=== PATIENT | female | born 1955 | race Caucasian/White ===

== ENCOUNTER 2025-03-13 13:12 | Inpatient (IN) | payer OTHER ==
[~2025-03-13] VITALS: Ht 152.4 cm; Wt 65.3 kg
[2025-03-13] MEDS ORDERED: KLOR-CON M2020 ME1 PO (13:55)
[2025-03-13] MEDS ORDERED: LASIX20 MG PO (13:56)
[2025-03-13] MEDS ORDERED: COL-RITE100 M1 PO (14:10)
[2025-03-13] MEDS ORDERED: 'CLONIDINE0.1 MG PO (14:13)
[2025-03-13] MEDS ORDERED: ELIQUIS5 M1 PO (14:14)
[2025-03-13] MEDS ORDERED: TOPROL XL50 M1 PO (14:18)
[2025-03-13] MEDS ORDERED: ROSUVASTATIN CAL5 MG PO (14:20)
[2025-03-13] MEDS ORDERED: PROTONIX40 MG PO (14:22)
[2025-03-13] MEDS ORDERED: SINGULAIR10 M1 PO (14:23)
[2025-03-13] MEDS ORDERED: TRELEGY ELLIPT1 EAC1 INH (14:26)
[2025-03-13] MEDS ORDERED: ACETAMINOPHEN500 M4 PO (14:28)
[2025-03-13] MEDS ORDERED: NICODERM CQ1 EAC2 TD (14:31)
[2025-03-13] MEDS ORDERED: Ventolin 02.5 MG/3 M INH (14:34)
[2025-03-13] MEDS ORDERED: VITAMIN D31250 MC1 PO (14:36)
[2025-03-13] MEDS ORDERED: ADMELOG100 UNIT/1 SC (14:39)
[2025-03-13] MEDS ORDERED: NATURE'S BLEND F1 MG PO (14:42)
[2025-03-13] MEDS ORDERED: LORazepam 1 MG TAB PO PRN (16:00)
[2025-03-13] MEDS ORDERED: hydrOXYzine hydrochloride 50 MG/ML VIAL IM PRN (16:00)
[2025-03-13] MEDS ORDERED: Water, Sterile 10 ML VIAL IM PRN (16:05)
[2025-03-13] MEDS ORDERED: ACETAMINOPHEN 325 MG TAB PO PRN (17:15)
[2025-03-13] MEDS ORDERED: MG-AL HYDROXIDE/SIMETICONE 30 ML UDC PO PRN (17:15)
[2025-03-13 18:01] VITALS: BP 143/52
[2025-03-13] MEDS ORDERED: DEXTROSE 50% 25 GM/50 ML VIAL IV PRN (20:35)
[2025-03-13] MEDS ORDERED: Mirtazapine 15 MG TAB PO SCH (21:00)
[2025-03-13] MEDS ORDERED: Menthol/Zinc Oxide 4 GM THIN T SCH (21:00)
[2025-03-13] MEDS ORDERED: METOPROLOL SUCCINATE XR 50 MG TAB PO SCH (22:00)
[2025-03-13] MEDS ORDERED: INSULIN LISPRO 1 UNIT/0.01 ML SQ SCH (22:00)
[2025-03-14 06:22] LABS: BASO # 0.1 10*3/uL (0.0-0.1); BASO % 0.5 % (0.0-1.0); EOS # 0.2 10*3/uL (0.0-0.4); EOS % 2.0 % (1.0-4.0); MEAN CELL VOLUME 92.3 fl (81.0-99.0); MEAN CORPUSCULAR HGB 29.6 pg (27.0-31.0); MEAN PLATELET VOLUME 8.2 fl (9.6-12.3); MONO # 0.9 10*3/uL (0.1-1.0); MONO % 7.8 % (3.0-9.0); NEUT # 8.6 10*3/uL (2.3-7.9); NEUT % 78.4 % (47.0-73.0); NUCLEATED RED BLOOD CELL 0.0 % (0.0-0.0); NUCLEATED RED BLOOD CELL 0.0 10*3/uL (0.0-0.0); PLATELET COUNT AUTOMATED 343 10*3/uL (130-400); RED CELL DISTRI WIDTH 15.8 % (0-14.5)
[2025-03-14 06:47] LABS: BUN 14 mg/dl (9-23); LDL CHOLESTEROL 48 mg/dL (9-159)
[2025-03-14 06:50] LABS: SGPT/ALT < 7 U/L (5-49)
[2025-03-14 07:43] LABS: VITAMIN D, 25-HYDROXY 50.1 ng/mL (30-100)
[2025-03-14] MEDS ORDERED: APIXABAN 5 MG TAB PO SCH (09:00)
[2025-03-14] MEDS ORDERED: POTASSIUM CHLORIDE 20 MEQ TAB PO SCH (09:00)
[2025-03-14] MEDS ORDERED: Rivastigmine Tartrate 9.5 MG/24 HR PATCH T SCH (09:00)
[2025-03-14] MEDS ORDERED: FUROSEMIDE 20 MG TAB PO SCH (09:00)
[2025-03-14 09:30] VITALS: BP 149/51
[2025-03-14] MEDS ORDERED: CYANOCOBALAMIN 1,000 MCG/ML VIAL IM SCH (10:00)
[2025-03-14 20:00] VITALS: BP 124/46
[2025-03-14] MEDS ORDERED: ATORVASTATIN CALCIUM 10 MG TAB PO SCH (21:00)
[2025-03-14] MEDS ORDERED: NYSTATIN 15 GM BOT T SCH (21:00)
[2025-03-15 08:00] VITALS: BP 135/60
[2025-03-15] MEDS ORDERED: risperiDONE 0.5 MG TAB PO SCH (09:00)
[2025-03-15 20:00] VITALS: BP 126/50
[2025-03-16 08:29] VITALS: BP 134/43
[2025-03-16 20:00] VITALS: BP 145/56
[2025-03-17 08:00] VITALS: BP 149/41
[2025-03-17 20:00] VITALS: BP 132/59
[2025-03-17 20:07] LABS: CLONAZEPAM (KLONOPIN),SERUM 13 ng/mL (20-70)
[2025-03-17] MEDS ORDERED: [UNRECOGNIZED DRUG - OTHER] PO SCH (21:00)
[2025-03-18 09:35] VITALS: BP 120/92
[2025-03-18 20:00] VITALS: BP 149/58
[2025-03-18 20:05] LABS: BILIRUBIN Negative (Negative); BLOOD Negative (Negative); CLARITY Clear (Clear); COLOR Yellow (Yellow); KETONE Negative (Negative); LEUKO ESTERASE 2+ (Negative); NITRITE Negative (Negative); PH 6.5 (4.5-8.0); SPECIFIC GRAVITY <= 1.005 (1.001-1.030); UROBILINOGEN 1.0 E.U./dl (0.0-1.0)
[2025-03-18 20:25] LABS: RBC 0-2 rbc/hpf (0-2); WBC 21-30 wbc/hpf (0-5)
[2025-03-18 20:26] LABS: BACTERIA 3+
[2025-03-18] MEDS ORDERED: [UNRECOGNIZED DRUG - OTHER] PO SCH (21:00)
[2025-03-19 08:18] VITALS: BP 138/54
[2025-03-19 20:00] VITALS: BP 123/61
[2025-03-20 06:47] LABS: BASO # 0.1 10*3/uL (0.0-0.1); BASO % 1.1 % (0.0-1.0); EOS # 0.2 10*3/uL (0.0-0.4); EOS % 2.7 % (1.0-4.0); MEAN CELL VOLUME 95.2 fl (81.0-99.0); MEAN CORPUSCULAR HGB 29.5 pg (27.0-31.0); MEAN PLATELET VOLUME 8.1 fl (9.6-12.3); MONO # 0.7 10*3/uL (0.1-1.0); MONO % 9.5 % (3.0-9.0); NEUT # 4.2 10*3/uL (2.3-7.9); NEUT % 60.0 % (47.0-73.0); NUCLEATED RED BLOOD CELL 0.0 % (0.0-0.0); NUCLEATED RED BLOOD CELL 0.0 10*3/uL (0.0-0.0); PLATELET COUNT AUTOMATED 296 10*3/uL (130-400); RED CELL DISTRI WIDTH 14.8 % (0-14.5)
[2025-03-20 08:51] LABS: BUN 12 mg/dl (9-23)
[2025-03-20 08:53] LABS: SGPT/ALT < 7 U/L (5-49)
[2025-03-20] MEDS ORDERED: RIVASTIGMINE 13.3 MG/24 HR TDM T SCH (09:00)
[2025-03-20 09:02] VITALS: BP 136/44
[2025-03-20 20:00] VITALS: BP 134/55
[2025-03-20] MEDS ORDERED: risperiDONE 0.5 MG TAB PO SCH (21:00)
[2025-03-21 08:37] VITALS: BP 132/60
[2025-03-21] MEDS ORDERED: VITAMIN B-121000 MC2 PO (09:00)
[2025-03-21] MEDS ORDERED: IMIPRAMINE25 MG PO (09:56)
[2025-03-21] MEDS ORDERED: RISPERIDONE0.5 MG PO (09:56)
[2025-03-21] MEDS ORDERED: RIVASTIGMINE1 EAC2 T (09:56)
[2025-03-21] MEDS ORDERED: B121000 MCG/1 IM (09:56)
== END 2025-03-21 13:05 | DRG 885 ==
LOC: 3N 13:12
PROVIDERS: Counselor Professional; ADMIT Psychiatry & Neurology Psychiatry; ATTEND Psychiatry & Neurology Psychiatry
PROC: 0HBRXZZ Excision of Toe Nail, External Approach (ICD-10-PCS; 2025-03-16)
PROC: 0HBRXZZ Excision of Toe Nail, External Approach (ICD-10-PCS; 2025-03-16)
PROC: 0HBRXZZ Excision of Toe Nail, External Approach (ICD-10-PCS; 2025-03-16)
PROC: 0HBRXZZ Excision of Toe Nail, External Approach (ICD-10-PCS; 2025-03-16)
PROC: 0HBRXZZ Excision of Toe Nail, External Approach (ICD-10-PCS; 2025-03-16)
PROC: 0HBRXZZ Excision of Toe Nail, External Approach (ICD-10-PCS; 2025-03-16)
PROC: 0HBRXZZ Excision of Toe Nail, External Approach (ICD-10-PCS; 2025-03-16)
PROC: 0HBRXZZ Excision of Toe Nail, External Approach (ICD-10-PCS; 2025-03-16)
PROC: 0HBRXZZ Excision of Toe Nail, External Approach (ICD-10-PCS; 2025-03-16)
PROC: 0HBRXZZ Excision of Toe Nail, External Approach (ICD-10-PCS; 2025-03-16)
PROC: GZHZZZZ Group Psychotherapy (ICD-10-PCS; principal; 2025-03-17)
DX: F33.3 Major depressive disorder, recurrent, severe with psychotic symptoms (principal); I11.0 Hypertensive heart disease with heart failure; F23 Brief psychotic disorder; E44.0 Moderate protein-calorie malnutrition; F51.3 Sleepwalking [somnambulism]; G30.9 Alzheimer's disease, unspecified; F02.80 Dementia in other diseases classified elsewhere, unspecified severity, without behavioral disturbance, psychotic disturbance, mood disturbance, and anxiety; E10.649 Type 1 diabetes mellitus with hypoglycemia without coma; I48.91 Unspecified atrial fibrillation; J44.9 Chronic obstructive pulmonary disease, unspecified; F40.00 Agoraphobia, unspecified; F41.0 Panic disorder [episodic paroxysmal anxiety]; D72.829 Elevated white blood cell count, unspecified; D50.9 Iron deficiency anemia, unspecified; I50.9 Heart failure, unspecified; E78.5 Hyperlipidemia, unspecified; B35.1 Tinea unguium; Z88.0 Allergy status to penicillin; Z88.5 Allergy status to narcotic agent; Z88.1 Allergy status to other antibiotic agents; Z87.891 Personal history of nicotine dependence; Z80.52 Family history of malignant neoplasm of bladder; Z80.0 Family history of malignant neoplasm of digestive organs; Z82.3 Family history of stroke; Z79.899 Other long term (current) drug therapy; Z68.28 Body mass index [BMI] 28.0-28.9, adult